=== PATIENT | male | born 1990 | race Two or more races ===

== ENCOUNTER 2018-11-26 02:50 | Emergency (ER) | payer SELFPAY ==
[~2018-11-26] VITALS: Ht 177.8 cm; Wt 86.2 kg
[~2018-11-26 02:50] MED LIST: MOTRIN
[2018-11-26 03:01] VITALS: BP 124/74
== END 2018-11-26 03:40 | disposition left against medical advice (07) ==
LOC: ER 02:50 → EDBD 02:50 → ER 03:40
DX: F10.920 Alcohol use, unspecified with intoxication, uncomplicated (principal); Y90.0 Blood alcohol level of less than 20 mg/100 ml
CPT/HCPCS: 94761